=== PATIENT | male | born 1995 | race American Indian/Alaskan Native ===

== ENCOUNTER 2017-06-30 06:40 | Emergency (ER) | payer SELFPAY ==
[2017-06-30 06:48] VITALS: BP 129/86
--- NOTE | 2017-06-30 07:34 | XRay Report ---
RIGHT HAND: Injury, pain. The bony architecture is intact. Bony alignment is normal. No soft tissue abnormalities are seen. The joint spaces appear preserved. IMPRESSION: Normal right hand. The
== END 2017-06-30 07:57 | disposition left against medical advice (07) ==
LOC: ED 06:40
DX: M79.644 Pain in right finger(s) (principal); Z53.21 Procedure and treatment not carried out due to patient leaving prior to being seen by health care provider

== ENCOUNTER 2018-08-27 20:25 | Emergency (ER) | payer OTHER ==
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
[2018-08-27] MEDS ORDERED: ULTRAM PO ONE (22:14)
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
[2018-08-27 23:21] VITALS: BP 112/62
== END 2018-08-27 23:22 | disposition home or self-care (01) ==
LOC: ED 20:25
DX: S39.012A Strain of muscle, fascia and tendon of lower back, initial encounter (principal); V89.2XXA Person injured in unspecified motor-vehicle accident, traffic, initial encounter; Y93.89 Activity, other specified; Y92.488 Other paved roadways as the place of occurrence of the external cause; Y99.8 Other external cause status
CPT/HCPCS: 72100; 99283